=== PATIENT | female | born 1965 | race Caucasian/White ===

== ENCOUNTER 2017-09-14 05:33 | Observation (INO) ==
[2017-09-14] MEDS ORDERED: Nitroglycerin 1 INCH/GM PACKET TP ONE (05:50)
[2017-09-14] MEDS ORDERED: Aspirin 81 MG TAB.CHEW PO ONE (05:50)
--- NOTE | 2017-09-14 06:16 | Emergency Department Note ---
Disposition Clinical Impression: Chest pain, rule out acute myocardial infarction Disposition: Admitted As Inpatient Condition: Fair Referrals: Godfrey Chaudhry MD [Primary Care Provider] - Forms: ED Satisfaction Letter Time of Disposition: 08:01 Chest Pain HPI - General Chief Complaint: ED Chest Pain Stated Complaint: Chest pain Time Seen by Provider: 09/14/17 05:42 Source: patient, EMS Limitations: no limitations Vital Signs Reviewed: Yes Nursing Notes Reviewed: Yes - History of Present Illness HPI Narrative: Nontoxic-appearing 52-year-old female with a history of COPD, hyperlipidemia, and hypertension presents for evaluation of nonradiating substernal chest pain. Pain began approximately one week ago and according to patient report has been consistent ever since. She was seen at this facility on 09/07/17 for the same. At that time, hospitalization was recommended for an acute coronary syndrome rule out, however the patient decided to leave AGAINST MEDICAL ADVICE, stating that she had several "important doctor's appointments that she had to be in [place]". She states that she is scheduled for an apparent resection of a pituitary gland tumor next week at the [facility]. She describes her pain as a dull ache and is rating it a 6 out of 10 on a 10 point scale at the current. She was administered 2 sublingual nitroglycerin tablets as well as 324 mg of aspirin prior to arrival at the emergency department by EMS personnel. She does state a moderate improvement in her pain after the administration of nitroglycerin. She denies any worsening cough or sputum production. She denies any fever or chills. She states that she has been nauseated but denies any vomiting. She denies any diaphoresis. Her pain is made worsened with exertion. She states that it is somewhat alleviated with rest. There is also an exertional component of dyspnea present as well. Pt complaint: chest pain Onset (ago): day(s) Duration: constant Pain Location: substernal Severity: moderate Severity scale (1-10): 6 Quality: dull Pain Radiation: none Improves with: rest Worsens with: exertion Associated symptoms: Reports: nausea, dyspnea. Denies: vomiting, diaphoresis, syncope, palpitations, fever, cough Treatments prior to arrival chest pain: aspirin, nitroglycerin - Related Data Home Medications Medication Instructions Recorded Confirmed Ergocalciferol (VITAMIN D2) 50,000 unit PO QWEEK 08/29/17 08/29/17 [Vitamin D2] Ezetimibe/Simvastatin [Vytorin 1 tab PO QAM 08/29/17 08/29/17 10-40 mg Tablet] Furosemide [Lasix] 10 mg PO QAM 08/29/17 08/29/17 Gabapentin [Neurontin] 300 mg PO QPM 08/29/17 08/29/17 Gabapentin [Neurontin] 600 mg PO QAM 08/29/17 08/29/17 HYDROcodone/Acet 5/325 mg [[place] 1 tab PO TID PRN 08/29/17 08/29/17 5-325 mg] Insulin ASPART [NovoLOG] 0 unit SQ TIDWM 08/29/17 08/29/17 Insulin Glargine [Lantus] 26 unit SQ QPM 08/29/17 08/29/17 Lisinopril [Zestril] 20 mg PO BID 08/29/17 08/29/17 Montelukast [Singulair] 10 mg PO DAILY 08/29/17 08/29/17 [place]-3/Dha/Epa/Fish Oil [Fish Oil 1 cap PO DAILY 08/29/17 08/29/17 1,000 mg Softgel] Theophylline Anhydrous [[place]-24] 100 mg PO QPM 08/29/17 08/29/17 Trazodone HCl 100 mg PO HS 08/29/17 08/29/17 raNITIdine HCl [Ranitidine HCl] 300 mg PO QAM 08/29/17 08/29/17 Allergies Allergy/AdvReac Type Severity Reaction Status Date / Time Cyclobenzaprine AdvReac Itching Verified 09/14/17 05:37 [From Flexeril] doxycycline AdvReac Itching Verified 09/14/17 05:37 levofloxacin [From Levaquin] AdvReac Itching Verified 09/14/17 05:37 lorazepam AdvReac Itching Verified 09/14/17 05:37 naproxen [From Naprosyn] AdvReac Hives Verified 09/14/17 05:37 Sulfa (Sulfonamide AdvReac Hives Verified 09/14/17 05:37 Antibiotics) Tizanidine AdvReac Rash Verified 09/14/17 05:37 All systems ED: reviewed and negative except as stated. Review of Systems: As Per HPI Constitutional: Denies: fever, chills, weakness, weight change Eyes: Denies: eye pain, eye discharge, vision change ENT ED: Denies: ear pain, throat pain, dental pain, hearing loss, epistaxis, congestion, dysphagia Cardiovascular: Reports: as per HPI, chest pain. Denies: palpitations, dyspnea on exertion, edema, syncope Respiratory: Denies: cough, dyspnea, wheezes, hemoptysis, stridor Gastrointestinal: Reports: as per HPI, nausea. Denies: abdominal pain, vomiting , diarrhea, constipation, hematemesis, melena, hematochezia Genitourinary: Denies: dysuria, frequency, hematuria, discharge Musculoskeletal: Denies: back pain, neck pain, arthralgia, myalgia Integumentary: Denies: rash, abrasion, lesions Neurological: Denies: headache, weakness, numbness, paresthesias, confusion, abnormal gait, vertigo Psychiatric: Denies: anxiety, depression, suicidal thoughts, homicidal thoughts , auditory hallucinations, visual hallucinations Endocrine: Denies: fatigue Hematological/Lymphatic: Denies: easy bleeding, easy bruising Allergic/Immunologic: Denies: facial swelling, urticaria Chest Pain PMH - Past Medical History Medical history: Reports: COPD, diabetes, hyperlipidemia, hypertension, renal disease Surgical history: Reports: hysterectomy, other Psychiatric history: Reports: bipolar, depression - Social History Smoking Status: Current some day smoker Alcohol use: Reports: none Drug use: Reports: none Physical Exam - General Limitations: no limitations General appearance: alert - Head Head exam: atraumatic, normocephalic, normal inspection - Eye Eye exam: Present: normal appearance, PERRL, EOMI. Absent: nystagmus - ENT ENT exam: mucous membranes moist - Neck Neck exam: Present: normal inspection, full ROM, trachea midline - Chest Chest inspection: Present: normal inspection, symmetric chest wall rise - Respiratory Respiratory exam: Present: normal lung sounds bilaterally. Absent: respiratory distress, wheezes, stridor, accessory muscle use, prolonged expiratory phase - Cardiovascular Cardiovascular exam: Present: regular rate, normal rhythm, normal heart sounds - Abdominal Exam Abdominal exam: Present: soft, Non-Tender, normal bowel sounds - Extremities Exam Extremities exam: Present: normal inspection, full ROM. Absent: tenderness, pedal edema - Neurological Exam Neurological exam: Present: alert, oriented X3 - Psychiatric Psychiatric exam: Present: normal affect, normal mood - Skin Skin exam: Present: warm, dry, intact, normal color. Absent: rash Course Course Narrative: 0800: I spoke with Dr. Donis, hospitalist on-call. Dr. Donis has accepted the patient for further observation and management/acute coronary syndrome rule out. I have discussed this plan with Dr. Adler, ED attending. Dr. Reich has had a [id number] evaluation with the patient and agrees with this plan. - Reevaluation(s) Reevaluation #1: Upon reexamination with the patient, the patient was found to be sleeping in bed. Although she states her pain is much improved, she is still rating it a 6 out of 10 on a 10 point scale despite the administration of topical Nitropaste. She is requesting transfer to the [facility] for an acute coronary syndrome rule out, given the fact that her surgical team is at that facility for her upcoming pituitary tumor resection. Time: 07:08 Reevaluation #2: I spoke with the transfer center nurse at the [facility]. According to the transfer center nurse, the patient would require a prior authorization from the [facility] prior to transfer. I discussed this finding with the patient. The patient is now agreeable to being admitted at this facility for further observation and evaluation. Time: 07:35 Vital Signs Temperature 97.6 F 09/14/17 05:38 Pulse Rate 77 09/14/17 05:38 Respiratory Rate 15 09/14/17 05:38 Blood Pressure 133/87 09/14/17 05:38 O2 Sat by Pulse Oximetry 99 09/14/17 05:38 Temperature 97.6 F 09/14/17 05:38 Pulse Rate 77 09/14/17 07:33 Respiratory Rate 19 09/14/17 07:33 Blood Pressure 153/99 09/14/17 07:33 O2 Sat by Pulse Oximetry 93 09/14/17 07:33 Oxygen Delivery Oxygen Delivery Room Air Chest Pain - Medical Records Medical records reviewed: Yes I reviewed the patient's medical records. - Lab Data Lab results reviewed: Yes I reviewed the patient's lab results. Lab results narrative: Lab Results 09/14/17 09/14/17 09/14/17 Range/Units 06:09 06:09 06:09 WBC 9.0 (4.3-11.1) K/mcL RBC 3.49 L (3.82-4.97) M/mcL Hgb 10.7 L (11.5-15.4) g/dL Hct 31.5 L (35.3-44.9) % MCV 90.3 (83.0-100.0) fL MCH 30.7 (28.0-33.3) pg MCHC 34.0 (31.6-35.5) g/dL RDW 13.8 (11.5-14.5) % Plt Count 148 (140-400) K/mcL MPV 8.5 L (9.4-12.4) fL Immature Gran % 0.3 (0-4) % Seg Neutrophils % 75.1 % Lymphocytes % 14.7 % Monocytes % 7.2 % Eosinophils % 2.6 % Basophils % 0.1 % Neutrophils # 6.7 (1.6-8.9) K/mcL Lymphocytes # 1.3 (0.6-4.6) K/mcL Monocytes # 0.7 (0.0-1.3) K/mcL Eosinophils # 0.2 (0.0-0.6) K/mcL Basophils # 0.0 (0.0-0.2) K/mcL PT 11.4 (9.4-12.1) Seconds INR 1.0 APTT 30.0 (26.0-36.0) Seconds Sodium (136-145) mEq/L Potassium (3.5-5.1) mEq/L Chloride (98-107) mEq/L Carbon Dioxide (23-29) mEq/L BUN (6-20) mg/dL Creatinine (0.60-1.20) mg/dL Est GFR ( Amer) (> 60) Est GFR (Non-Af Amer) (> 60) BUN/Creatinine Ratio (6-26) Glucose (70-105) mg/dL Calculated Osmolality (280-300) Calcium (8.6-10.3) mg/dL Total Bilirubin 0.3 (0.3-1.0) mg/dL Direct Bilirubin 0.1 (0.0-0.2) mg/dL Indirect Bilirubin 0.2 (0.0-1.2) mg/dL AST 11 L (13-39) Units/L ALT 12 (7-52) Units/L Alkaline Phosphatase 99 (34-104) Units/L Troponin I (< 0.04) ng/mL Serum Total Protein 6.1 L (6.4-8.9) g/dL Albumin 3.7 (3.5-5.7) g/dL Globulin 2.4 (2.4-3.5) g/dL Albumin/Globulin Ratio 1.5 (1.1-2.2) 09/14/17 Range/Units 06:09 WBC (4.3-11.1) K/mcL RBC (3.82-4.97) M/mcL Hgb (11.5-15.4) g/dL Hct (35.3-44.9) % MCV (83.0-100.0) fL MCH (28.0-33.3) pg MCHC (31.6-35.5) g/dL RDW (11.5-14.5) % Plt Count (140-400) K/mcL MPV (9.4-12.4) fL Immature Gran % (0-4) % Seg Neutrophils % % Lymphocytes % % Monocytes % % Eosinophils % % Basophils % % Neutrophils # (1.6-8.9) K/mcL Lymphocytes # (0.6-4.6) K/mcL Monocytes # (0.0-1.3) K/mcL Eosinophils # (0.0-0.6) K/mcL Basophils # (0.0-0.2) K/mcL PT (9.4-12.1) Seconds INR APTT (26.0-36.0) Seconds Sodium 135 L (136-145) mEq/L Potassium 4.6 (3.5-5.1) mEq/L Chloride 105 (98-107) mEq/L Carbon Dioxide 24 (23-29) mEq/L BUN 17 (6-20) mg/dL Creatinine 1.28 H (0.60-1.20) mg/dL Est GFR ( Amer) 53 L (> 60) Est GFR (Non-Af Amer) 44 L (> 60) BUN/Creatinine Ratio 13 (6-26) Glucose 169 H (70-105) mg/dL Calculated Osmolality 285 (280-300) Calcium 8.7 (8.6-10.3) mg/dL Total Bilirubin (0.3-1.0) mg/dL Direct Bilirubin (0.0-0.2) mg/dL Indirect Bilirubin (0.0-1.2) mg/dL AST (13-39) Units/L ALT (7-52) Units/L Alkaline Phosphatase (34-104) Units/L Troponin I < 0.03 (< 0.04) ng/mL Serum Total Protein (6.4-8.9) g/dL Albumin (3.5-5.7) g/dL Globulin (2.4-3.5) g/dL Albumin/Globulin Ratio (1.1-2.2) Result diagrams: 09/14/17 06:09 09/14/17 06:09 Lab Results 09/14/17 09/14/17 09/14/17 Range/Units 06:09 06:09 06:09 WBC 9.0 (4.3-11.1) K/mcL RBC 3.49 L (3.82-4.97) M/mcL Hgb 10.7 L (11.5-15.4) g/dL Hct 31.5 L (35.3-44.9) % MCV 90.3 (83.0-100.0) fL MCH 30.7 (28.0-33.3) pg MCHC 34.0 (31.6-35.5) g/dL RDW 13.8 (11.5-14.5) % Plt Count 148 (140-400) K/mcL MPV 8.5 L (9.4-12.4) fL Immature Gran % 0.3 (0-4) % Seg Neutrophils % 75.1 % Lymphocytes % 14.7 % Monocytes % 7.2 % Eosinophils % 2.6 % Basophils % 0.1 % Neutrophils # 6.7 (1.6-8.9) K/mcL Lymphocytes # 1.3 (0.6-4.6) K/mcL Monocytes # 0.7 (0.0-1.3) K/mcL Eosinophils # 0.2 (0.0-0.6) K/mcL Basophils # 0.0 (0.0-0.2) K/mcL PT 11.4 (9.4-12.1) Seconds INR 1.0 APTT 30.0 (26.0-36.0) Seconds Sodium (136-145) mEq/L Potassium (3.5-5.1) mEq/L Chloride (98-107) mEq/L Carbon Dioxide (23-29) mEq/L BUN (6-20) mg/dL Creatinine (0.60-1.20) mg/dL Est GFR ( Amer) (> 60) Est GFR (Non-Af Amer) (> 60) BUN/Creatinine Ratio (6-26) Glucose (70-105) mg/dL Calculated Osmolality (280-300) Calcium (8.6-10.3) mg/dL Total Bilirubin 0.3 (0.3-1.0) mg/dL Direct Bilirubin 0.1 (0.0-0.2) mg/dL Indirect Bilirubin 0.2 (0.0-1.2) mg/dL AST 11 L (13-39) Units/L ALT 12 (7-52) Units/L Alkaline Phosphatase 99 (34-104) Units/L Troponin I (< 0.04) ng/mL Serum Total Protein 6.1 L (6.4-8.9) g/dL Albumin 3.7 (3.5-5.7) g/dL Globulin 2.4 (2.4-3.5) g/dL Albumin/Globulin Ratio 1.5 (1.1-2.2) 09/14/17 Range/Units 06:09 WBC (4.3-11.1) K/mcL RBC (3.82-4.97) M/mcL Hgb (11.5-15.4) g/dL Hct (35.3-44.9) % MCV (83.0-100.0) fL MCH (28.0-33.3) pg MCHC (31.6-35.5) g/dL RDW (11.5-14.5) % Plt Count (140-400) K/mcL MPV (9.4-12.4) fL Immature Gran % (0-4) % Seg Neutrophils % % Lymphocytes % % Monocytes % % Eosinophils % % Basophils % % Neutrophils # (1.6-8.9) K/mcL Lymphocytes # (0.6-4.6) K/mcL Monocytes # (0.0-1.3) K/mcL Eosinophils # (0.0-0.6) K/mcL Basophils # (0.0-0.2) K/mcL PT (9.4-12.1) Seconds INR APTT (26.0-36.0) Seconds Sodium 135 L (136-145) mEq/L Potassium 4.6 (3.5-5.1) mEq/L Chloride 105 (98-107) mEq/L Carbon Dioxide 24 (23-29) mEq/L BUN 17 (6-20) mg/dL Creatinine 1.28 H (0.60-1.20) mg/dL Est GFR ( Amer) 53 L (> 60) Est GFR (Non-Af Amer) 44 L (> 60) BUN/Creatinine Ratio 13 (6-26) Glucose 169 H (70-105) mg/dL Calculated Osmolality 285 (280-300) Calcium 8.7 (8.6-10.3) mg/dL Total Bilirubin (0.3-1.0) mg/dL Direct Bilirubin (0.0-0.2) mg/dL Indirect Bilirubin (0.0-1.2) mg/dL AST (13-39) Units/L ALT (7-52) Units/L Alkaline Phosphatase (34-104) Units/L Troponin I < 0.03 (< 0.04) ng/mL Serum Total Protein (6.4-8.9) g/dL Albumin (3.5-5.7) g/dL Globulin (2.4-3.5) g/dL Albumin/Globulin Ratio (1.1-2.2) - Radiology Data Radiology results reviewed: Yes I reviewed the patient's radiology results. Chest X-Ray 09/14/17 05:50 IMPRESSION: 1. Mild prominence of the interstitial markings, which appear similar to the prior exam. 2. Otherwise, no acute cardiopulmonary abnormality. D/ / Jhoan Burnham MD / Jhoan Burnham MD Interpreting Provider: Jhoan Burnham MD - EKG Data EKG attestation: Yes I reviewed and interpreted this EKG. EKG results narrative: EKG reviewed by Dr. Serrato as well. EKG shows a sinus rhythm with left axis deviation at a rate of 83 bpm. [place] interval 168, QRS duration 73, QT/QTc interval 365/405. No ectopy noted. No ST elevation. No significant changes when compared to an EKG dated from . Attestation Statement - Attestation Attestation: This documentation is done with the assistance of Dragon dictation. Despite efforts made to ensure accuracy, there may be inaccuracies in salesperson neckties or spelling and typographical errors. For this encounter, I have reviewed the CLINICAL NURSE OCCUPATIONAL MEDICINE or PA documentation, treatment plan, and medical decision making; and I have had face to face time with this patient. Patient seen and evaluated by Kapil Vazquez and myself prior to my arrival at 7 AM. Patient was due to be admitted versus transferred for chest pain rule out ACS. So he asked that I would not supervised the patient for admission. Patient's had a history of chest pain was seen here previously and the physician wanted to admit her. However she had other things that she needed to take care of at the time. She is back with the same. Has not had a chest pain workup yet except for in the emergency department. She states that she like to be transferred up to [facility] as as were her oncology is. But it told her we could be easily keep her here and she is agreement with that plan. Chest pain-free at this time admission for chest pain rule out ACS.
[2017-09-14 06:19] LABS: Basophils % 0.1 %; Eosinophils # 0.2 K/mcL (0.0-0.6); Eosinophils % 2.6 %; Hematocrit 31.5 % (35.3-44.9); Hemoglobin 10.7 g/dL (11.5-15.4); Immature Granulocytes % 0.3 % (0-4); Lymphocytes # 1.3 K/mcL (0.6-4.6); Lymphocytes % 14.7 %; Mean Corpuscular Hemoglobin 30.7 pg (28.0-33.3); Mean Corpuscular Volume 90.3 fL (83.0-100.0); Mean Platelet Volume 8.5 fL (9.4-12.4); Monocytes # 0.7 K/mcL (0.0-1.3); Monocytes % 7.2 %; Neutrophils # 6.7 K/mcL (1.6-8.9); Platelet Count 148 K/mcL (140-400); Red Blood Count 3.49 M/mcL (3.82-4.97); Red Cell Distribution Width 13.8 % (11.5-14.5); Segmented Neutrophils % 75.1 %
[2017-09-14 06:24] LABS: Prothrombin Time 11.4 Seconds (9.4-12.1)
[2017-09-14 06:44] LABS: Troponin I < 0.03 ng/mL (< 0.04)
[2017-09-14 06:57] LABS: Albumin 3.7 g/dL (3.5-5.7); Albumin/Globulin Ratio 1.5 (1.1-2.2); Bilirubin,Direct 0.1 mg/dL (0.0-0.2); Bilirubin,Indirect 0.2 mg/dL (0.0-1.2); Bilirubin,Total 0.3 mg/dL (0.3-1.0); Globulin 2.4 g/dL (2.4-3.5); Total Protein 6.1 g/dL (6.4-8.9)
[2017-09-14 06:58] LABS: BUN/Creatinine Ratio 13 (6-26); Blood Urea Nitrogen 17 mg/dL (6-20); Calcium 8.7 mg/dL (8.6-10.3); Carbon Dioxide 24 mEq/L (23-29); Chloride 105 mEq/L (98-107); Glucose 169 mg/dL (70-105); Osmolality,Calculated 285 (280-300); Potassium 4.6 mEq/L (3.5-5.1); Sodium 135 mEq/L (136-145); eGFR For Non-African Americans 44 (> 60)
[2017-09-14] MEDS: 0.9 % Sodium Chloride 1,000 ML IVC SCH (11:02)
--- NOTE | 2017-09-14 17:04 | Internal Med History&Physical ---
Date of Encounter: 09/14/17 Time of Encounter: 11:00 Internal Medicine - H&P: HPI Chief complaint: Chest pain Admitted From: Home Plans for Post Hospital Care: Home History of present illness: Patient is a 52-year-old female with past medical history of hypertension, diabetes and hyperlipidemia who presented to the ER on 09/14/17 due to chest pain. Patient reports of being awakened this morning at 3 AM with substernal chest pain which she describes as sharp with sitting up making it worse and resting giving some relief. She reports of nausea but no other associated symptoms. Patient was concerned and decided to go to the ER for evaluation. In the ER, patients first set of cardiac biomarkers were negative. Chest x- ray also negative for any acute findings. Patient will be admitted to medical surgical floor for ACS rule out. Past Med Surg Social Fam HX - Past Medical History Medical history: COPD, diabetes, hyperlipidemia, hypertension, renal disease Additional medical history: pituitary tumor Psychiatric history: bipolar, depression - Past Surgical History Surgical History: hysterectomy, other Additional surgical history: left leg steel plate and rods - Social History Smoking Status: Current some day smoker Packs per day: 1/3 Smokeless Tobacco Status: No Alcohol use: none Drug use: none - Family History Mother Living Status: Unknown Father Living Status: Unknown Internal Medicine - H&P: Meds Ergocalciferol (VITAMIN D2) [Vitamin D2] 50,000 unit PO QWEEK 08/29/17 [History] Ezetimibe/Simvastatin [Vytorin 10-40 mg Tablet] 1 tab PO QAM 08/29/17 [History] HYDROcodone/Acet 5/325 mg [[place] 5-325 mg] 1 tab PO TID PRN 08/29/17 [History] Insulin ASPART [NovoLOG] 0 unit SQ TIDWM 08/29/17 [History] Insulin Glargine [Lantus] 32 unit SQ QPM 08/29/17 [History] Montelukast [Singulair] 10 mg PO DAILY 08/29/17 [History] [place]-3/Dha/Epa/Fish Oil [Fish Oil 1,000 mg Softgel] 1 cap PO DAILY 08/29/17 [ History] Trazodone HCl 100 mg PO HS 08/29/17 [History] raNITIdine HCl [Ranitidine HCl] 300 mg PO QAM 08/29/17 [History] Albuterol Sulfate [Proair Hfa] 2 puff IH Q4H PRN 09/14/17 [History] Aspirin 325 mg PO DAILY 09/14/17 [History] Esomeprazole Magnesium [Nexium] 40 mg PO DAILY 09/14/17 [History] Sitagliptin Phosphate [Januvia] 50 mg PO DAILY 09/14/17 [History] Tiotropium [Spiriva] 1 puff IH DAILY 09/14/17 [History] 3 Allergy/AdvReac Type Severity Reaction Status Date / Time Cyclobenzaprine AdvReac Itching Verified 09/14/17 05:37 [From Flexeril] doxycycline AdvReac Itching Verified 09/14/17 05:37 levofloxacin [From Levaquin] AdvReac Itching Verified 09/14/17 05:37 lorazepam AdvReac Itching Verified 09/14/17 05:37 naproxen [From Naprosyn] AdvReac Hives Verified 09/14/17 05:37 Sulfa (Sulfonamide AdvReac Hives Verified 09/14/17 05:37 Antibiotics) Tizanidine AdvReac Rash Verified 09/14/17 05:37 All Systems PM: A 10-system review of systems was performed and is negative for pertinent findings except as documented above in the HPI. - Constitutional Vitals: Temp Pulse Resp BP Pulse Ox 98.1 F 68 15 152/88 96 09/14/17 15:49 09/14/17 15:49 09/14/17 15:49 09/14/17 15:49 09/14/17 15:49 General appearance: Present: A&O X 3, no acute distress - Eye Eye exam: Present: normal appearance - ENT ENT exam: Present: mucous membranes moist - Respiratory Respiratory exam: Present: CTAB. Absent: accessory muscle use, rales, rhonchi, wheezes - Cardiovascular Cardiovascular exam: Present: RRR, +S1, +S2. Absent: diastolic murmur, gallop, rubs, systolic murmur - GI/Abdominal GI/Abdominal exam: Present: normal bowel sounds, soft, no peritoneal signs. Absent: distended, tenderness - Extremities Exam Extremities exam: Absent: pedal edema - Neurological Exam Neurological exam: Present: oriented X3 - Psychiatric Psychiatric exam: Present: normal mood - Skin Skin exam: Present: normal color Internal Med - H&P Results - Labs CBC & Chem 7: 09/14/17 06:09 09/14/17 06:09 Labs: Cardiac Enzymes 09/14/17 Range/Units 09:54 Troponin I < 0.03 (< 0.04) ng/mL - Assessment and plan (1) Chest pain, rule out acute myocardial infarction Current Visit: Yes Status: Acute Assessment and plan: First 2 set of cardiac biomarkers negative Will order nuclear test and stress test to rule out ACS. (2) Chronic kidney disease Current Visit: No Status: Acute Assessment and plan: Patient creatinine has improved as was 3.2 on 08/29/17 and today is 1.28 Will continue to monitor. Qualifiers: Chronic kidney disease stage: unspecified stage Qualified Code(s): N18.9 - Chronic kidney disease, unspecified (3) HTN (hypertension), benign Current Visit: Yes Status: Acute Assessment and plan: Continue home medications (4) DM2 (diabetes mellitus, type 2) Current Visit: Yes Status: Acute Assessment and plan: Continue home medications Qualifiers: Qualified Code(s): E11.9 - Type 2 diabetes mellitus without complications (5) DVT prophylaxis Current Visit: Yes Status: Acute Assessment and plan: Heparin subcutaneous - Time Spent With Patient Total time spent is greater than 50% in coordination of care (as documented) at patient's floor/unit and/or counseling patient:
[2017-09-14] MEDS ORDERED: Naloxone 0.4 MG/ML INJ IVP PRN (17:32)
[2017-09-14] MEDS ORDERED: *HR* HYDROcodone/Acet 5/325 mg TABLET PO PRN (17:35)
[2017-09-14] MEDS ORDERED: Insulin DETEMIR 100 UNIT/ML X5UNITS SQ SCH (18:00)
[2017-09-14] MEDS: Cholecalciferol (D-3) 1,000 UNIT TABLET PO SCH (18:38)
[2017-09-14] MEDS: *HR* Heparin 5,000 UNIT/ML VIAL SQ SCH (18:38)
[2017-09-14] MEDS ORDERED: traZODone 50 MG TABLET PO SCH (21:00)
[2017-09-15] MEDS: 0.9 % Sodium Chloride 1,000 ML IVC SCH (00:36)
[2017-09-15 01:45] LABS: Basophils % 0.2 %; Eosinophils # 0.2 K/mcL (0.0-0.6); Eosinophils % 4.3 %; Hematocrit 30.5 % (35.3-44.9); Hemoglobin 10.2 g/dL (11.5-15.4); Immature Granulocytes % 0.2 % (0-4); Lymphocytes # 1.4 K/mcL (0.6-4.6); Lymphocytes % 27.8 %; Mean Corpuscular HGB Conc 33.4 g/dL (31.6-35.5); Mean Corpuscular Hemoglobin 29.9 pg (28.0-33.3); Mean Corpuscular Volume 89.4 fL (83.0-100.0); Mean Platelet Volume 9.4 fL (9.4-12.4); Monocytes # 0.5 K/mcL (0.0-1.3); Monocytes % 9.9 %; Neutrophils # 2.9 K/mcL (1.6-8.9); Platelet Count 159 K/mcL (140-400); Red Blood Count 3.41 M/mcL (3.82-4.97); Red Cell Distribution Width 13.6 % (11.5-14.5); Segmented Neutrophils % 57.6 %
[2017-09-15 02:03] LABS: Potassium 4.2 mEq/L (3.5-5.1)
[2017-09-15] MEDS: *HR* Heparin 5,000 UNIT/ML VIAL SQ SCH (05:20)
[2017-09-15] MEDS ORDERED: Regadenoson 0.4 MG/5 ML SYRINGE IVP ONE (06:16)
[2017-09-15] MEDS ORDERED: Acetaminophen 325 MG TABLET PO PRN (08:49)
[2017-09-15] MEDS ORDERED: *HR* SitaGLIPtin 25 MG TABLET PO SCH (09:00)
[2017-09-15] MEDS ORDERED: (Omega-3/Dha/Epa/Fish Oil [Fish Oil 1,000 Mg Softgel] PO SCH (09:00)
[2017-09-15] MEDS ORDERED: (Ezetimibe/Simvastatin [Vytorin 10-40 Mg Tablet] 1 TA PO SCH (09:00)
[2017-09-15] MEDS ORDERED: Aspirin 325 MG TABLET PO SCH (09:00)
[2017-09-15] MEDS ORDERED: Famotidine 20 MG TABLET PO SCH (09:00)
--- NOTE | 2017-09-15 09:04 | Internal Med Progress Note ---
Hospitalist Progress Note - Encounter Date of Encounter: 09/15/17 Time of Encounter: 09:02 - Subjective Interval History: Patient seen and examined at bedside today. Denies any chest pain, shortness of breath, dyspnea, weakness, fatigue. Patient reports that she has not had any return of chest pain since his admission. Is anxious for discharge. - Exam Vitals: Temp Pulse Resp BP Pulse Ox 97.9 F 78 17 133/61 96 09/15/17 03:38 09/15/17 03:38 09/15/17 03:38 09/15/17 03:38 09/15/17 03:38 Exam: PHYSICAL EXAMINATION: GENERAL: The patient is a well-developed, well-nourished female in no apparent distress. She is alert and oriented x3. HEENT: Head is normocephalic and atraumatic. Extraocular muscles are intact. Pupils are equal, round, and reactive to light and accommodation. LUNGS: Clear to auscultation. HEART: Regular rate and rhythm without murmur. ABDOMEN: Soft, nontender, and nondistended. Positive bowel sounds. No hepatosplenomegaly was noted. EXTREMITIES: Without any cyanosis, clubbing, rash, lesions or edema - Assessment and Plan (1) Chest pain, rule out acute myocardial infarction Current Visit: Yes Status: Acute Assessment and Plan: Presented with substernal chest pain described as sharp pressure which resolved with 1 sublingual nitroglycerin while in the ED. She reports that she has had no return of chest pain during this stay and is anxious for discharge CXR findings negative for acute pulmonary process, cardio biomarkers negative 3 less than 0.03 We will obtain echocardiogram at this time Stress test completed this morning--awaiting results--discharge if results are negative for ischemia or perfusion defect Continue telemetry (2) Chronic kidney disease Current Visit: No Status: Acute Assessment and Plan: No history of kidney disease. Renal function improving from 3.2 on 08/29/17. Unclear what caused a chaotic during this time, concern for contrast nephropathy. Renal function today is 1.38. Continue to monitor. (3) DM2 (diabetes mellitus, type 2) Current Visit: Yes Status: Acute Assessment and Plan: History of DM 2, continue detemir 32 units SQ every night (4) HTN (hypertension), benign Current Visit: Yes Status: Acute Assessment and Plan: History of hypertension, was hypertensive on arrival but reported she had not yet taken her a.m. medications. Blood pressure improved with continuation of home BP medications. Blood pressures remained stable throughout the stay. Continue home medications (5) DVT prophylaxis Current Visit: Yes Status: Acute Assessment and Plan: Continue Heparin subcutaneous - Time Spent with Patient Total time spent is greater than 50% in coordination of care (as documented) at patient's floor/unit and/or counseling patient: less than 15 minutes Plan of Care Discussed with: patient Internal Medicine: Result - Labs CBC & Chem 7: 09/15/17 00:28 09/15/17 00:28 Labs: Short CBC 09/15/17 Range/Units 00:28 WBC 5.1 (4.3-11.1) K/mcL Hgb 10.2 L (11.5-15.4) g/dL Hct 30.5 L (35.3-44.9) % Plt Count 159 (140-400) K/mcL Neutrophils # 2.9 (1.6-8.9) K/mcL BMP 09/15/17 00:28 Sodium 137 Potassium 4.2 Chloride 107 Carbon Dioxide 25 BUN 15 Creatinine 1.38 H Glucose 192 H Calcium 9.0 Cardiac Enzymes 09/14/17 09/14/17 09/15/17 Range/Units 09:54 17:56 00:28 Troponin I < 0.03 < 0.03 < 0.03 (< 0.04) ng/mL 09/15/17 Range/Units 06:03 Troponin I < 0.03 (< 0.04) ng/mL - ABG Interpretation ABG results: PT/INR, D-dimer PT 11.4 Seconds (9.4-12.1) 09/14/17 06:09 Consult Discharge Plan - Plan Referrals: Godfrey Chaudhry MD [Primary Care Provider] - 09/18/17 1:15 pm (2) Chronic kidney disease Qualifiers: Chronic kidney disease stage: unspecified stage Qualified Code(s): N18.9 - Chronic kidney disease, unspecified (3) DM2 (diabetes mellitus, type 2) Qualifiers: Qualified Code(s): E11.9 - Type 2 diabetes mellitus without complications
[2017-09-15] MEDS: Cholecalciferol (D-3) 1,000 UNIT TABLET PO SCH (09:44)
[2017-09-15] MEDS ORDERED: Tiotropium 18 MCG inhalation IH SCH (10:00)
--- NOTE | 2017-09-15 11:33 | Discharge Summary ---
- NOTES TO OUTPATIENT PROVIDER Notes to Outpatient Provider: Admitted for chest pain. Stress test negative for ischemia or perfusion defect, cardio biomarkers negative 3 less than 0.03. Resolution of chest pain in ED, no return of CP during stay. Uneventful hospital course, no pending studies at time of d/c Orders not resulted at time of discharge: Pending orders 09/14/17 17:38 NM damaris perf SPECT multi [NM] Routine 09/15/17 08:24 EV echocardiogram Routine Date of Encounter: 09/15/17 Time of Encounter: 11:29 - Discharge Diagnosis (1) Chest pain, rule out acute myocardial infarction Priority: Primary Status: Acute Assessment and Plan: Presented with substernal chest pain described as sharp pressure which resolved with 1 sublingual nitroglycerin while in the ED. She reports that she has had no return of chest pain during this stay and is anxious for discharge CXR findings negative for acute pulmonary process, cardio biomarkers negative 3 less than 0.03 Stress test completed this morning-- negative for ischemia or perfusion defect (2) Chronic kidney disease Priority: Secondary Status: Acute Qualifiers: Chronic kidney disease stage: unspecified stage Qualified Code(s): N18.9 - Chronic kidney disease, unspecified (3) DM2 (diabetes mellitus, type 2) Priority: Secondary Status: Acute Qualifiers: Qualified Code(s): E11.9 - Type 2 diabetes mellitus without complications (4) HTN (hypertension), benign Priority: Secondary Status: Acute (5) DVT prophylaxis Priority: Secondary Status: Acute Hospital course: Ms. Mcdonald is a 52 year old female with a past medical history of hypertension, diabetes and hyperlipidemia. She presented on 09/14/17 due to substernal chest pain described as pressure Chest pain resolved while in the ED after receiving one sublingual nitroglycerin. EKG negative for ST-T wave changes concerning for ischemia, cardio biomarkers negative 3 less than 0.03, stress test obtained and found to be negative for ischemia or perfusion defect. Uneventful hospital course no return of chest pain throughout visit. No pending studies at time of discharge. Instructed to follow-up with PCP within 1 week of discharge. Consider noncardiac cause of chest pain/pressure with negative cardiac workup, as the patient does describe having GERD and frequent episodes of heartburn. Also, the patient does appear mildly anxious and may have an anxiety component contributing to chest. May benefit from TTE outpatient to assess for structural abnormalities; was offered inpatient but patient requesting discharge home. Instructed to return to the ED showed chest pain resume endorse that she began to experience, chest pain, shortness of breath, diaphoresis, nausea. Verbalized understanding denies any further questions at this time Discharge discussed with: patient, nurse - Time Spent with Patient Total time spent providing and/or coordinating discharge services: Less than 30 minutes - Discharge Medications Home Medications: Ergocalciferol (VITAMIN D2) [Vitamin D2] 50,000 unit PO QWEEK 08/29/17 [History] Ezetimibe/Simvastatin [Vytorin 10-40 mg Tablet] 1 tab PO QAM 08/29/17 [History] HYDROcodone/Acet 5/325 mg [[place] 5-325 mg] 1 tab PO TID PRN 08/29/17 [History] Insulin ASPART [NovoLOG] 0 unit SQ TIDWM 08/29/17 [History] Insulin Glargine [Lantus] 32 unit SQ QPM 08/29/17 [History] Montelukast [Singulair] 10 mg PO DAILY 08/29/17 [History] [place]-3/Dha/Epa/Fish Oil [Fish Oil 1,000 mg Softgel] 1 cap PO DAILY 08/29/17 [ History] Trazodone HCl 100 mg PO HS 08/29/17 [History] raNITIdine HCl [Ranitidine HCl] 300 mg PO QAM 08/29/17 [History] Albuterol Sulfate [Proair Hfa] 2 puff IH Q4H PRN 09/14/17 [History] Aspirin 325 mg PO DAILY 09/14/17 [History] Esomeprazole Magnesium [Nexium] 40 mg PO DAILY 09/14/17 [History] Sitagliptin Phosphate [Januvia] 50 mg PO DAILY 09/14/17 [History] Tiotropium [Spiriva] 1 puff IH DAILY 09/14/17 [History] Allergies/Adverse Reactions: 3 Allergy/AdvReac Type Severity Reaction Status Date / Time Cyclobenzaprine AdvReac Itching Verified 09/14/17 05:37 [From Flexeril] doxycycline AdvReac Itching Verified 09/14/17 05:37 levofloxacin [From Levaquin] AdvReac Itching Verified 09/14/17 05:37 lorazepam AdvReac Itching Verified 09/14/17 05:37 naproxen [From Naprosyn] AdvReac Hives Verified 09/14/17 05:37 Sulfa (Sulfonamide AdvReac Hives Verified 09/14/17 05:37 Antibiotics) Tizanidine AdvReac Rash Verified 09/14/17 05:37 Date of admission: 09/14/17 08:05 Primary care physician: Godfrey Chaudhry MD Discharging clinician: Kingston Escobedo Anticipated date of discharge: 09/15/17 - Constitutional Vitals: Temp Pulse Resp BP Pulse Ox 97.9 F 78 17 133/61 96 09/15/17 03:38 09/15/17 03:38 09/15/17 03:38 09/15/17 03:38 09/15/17 03:38 General appearance: Present: A&O X 3, no acute distress - Head Head exam: Present: atraumatic, normocephalic - Eye Eye exam: Present: PERRL, conjuntiva pink, sclera anicteric Pupils: Present: PERRL - Neck Neck exam general surgery: Present: supple, trachea midline. Absent: lymphadenopathy - Respiratory Respiratory exam: Present: CTAB. Absent: accessory muscle use, rales, rhonchi, wheezes - Cardiovascular Cardiovascular exam: Present: RRR, +S1, +S2. Absent: diastolic murmur, gallop, rubs, systolic murmur - GI/Abdominal GI/Abdominal exam: Present: normal bowel sounds, soft, no peritoneal signs. Absent: distended, tenderness - Extremities Exam Extremities exam: Present: warm, radial pulses palpable and symmetrical. Absent : calf tenderness, cyanotic, pedal edema - Neurological Exam Neurological exam: Present: CN II-XII intact, oriented X3, no focal deficits. Absent: pronater drift, facial droop, speech deficit - Skin Skin exam: Present: dry, intact - Patient Status Disposition: Home, Self-Care Condition: Fair Functional capacity at discharge: independent ambulation Overall status at discharge: patient is back to baseline - Discharge Instructions Instructions: Chest Pain (DC), Diabetes Mellitus Type 2 in Adults (DC), Chronic Hypertension (DC) Follow Up With: Godfrey Chaudhry MD [Primary Care Provider] - 09/18/17 1:15 pm - Diet and Activity Activity: increase activity as tolerated, resume usual activities as tolerated Diet: diabetic diet, low fat, low cholesterol
[2017-09-15 11:53] VITALS: BP 152/96
--- NOTE | 2017-09-16 14:44 | Electrocardiograph Report ---
[address] [address] Test Date: 2017-09-14 Pat Name: Ricarda Mcdonald Department: 104 Room: 3B Gender: F Signal Operator: DEBBY : 1965 Requested By: Mariam Ta Order Number: [id number] Reading MD: Emeka Milton Measurements Intervals [place] Rate: 83 P: 29 UT: 168 QRS: -34 QRSD: 73 T: 13 QT: 365 QTc: 405 Interpretive Statements SINUS RHYTHM MARKED LEFT AXIS DEVIATION LOW QRS VOLTAGE IN PRECORDIAL LEADS Poor R wave progression Electronically Signed On 09-16-2017 14:43:22 EDT by Emeka Milton
== END 2017-09-15 14:05 | disposition home or self-care (01) ==
LOC: 3BNU 05:33 → EMEROO 05:33 → 3BNU 09:22
PROVIDERS: ADMIT Hospitalist; ATTEND Hospitalist